=== PATIENT | female | born 1965 | race Caucasian/White ===

== ENCOUNTER 2021-01-26 09:35 | Emergency (ER) | payer OTHER ==
[2021-01-26 10:24] LABS: BASOPHIL 1.1 % (0-2); EOSINOPHIL 4.1 % (0-5); HCT 39.1 % (37.0-47.0); HGB 12.5 g/dl (12.5-16.0); LYMPHOCYTE 26.3 % (15-48); MONOCYTE 9.9 % (0-12); MPV 9.7 fL (6.0-9.5); NEUTROPHIL 58.3 % (41-80); NRBC 0; PLT 248 K/uL (150-400); RBC 4.16 M/uL (4.20-5.40); RDW 12.5 % (11.5-14.0); WBC 7.6 K/uL (4.0-10.5)
[2021-01-26 10:33] LABS: ALBUMIN 3.5 g/dL (3.4-5.0); BILIRUBIN - TOTAL 0.2 mg/dL (0.2-1.0); BUN/CREAT RATIO (CALC) 17.6 RATIO; CREATININE 0.68 mg/dL (0.51-0.95); GLOBULIN (CALCULATION) 4.2 g/dL; POTASSIUM 4.6 mmol/L (3.5-5.1); TOTAL PROTEIN 7.7 g/dL (6.4-8.2)
[2021-01-26 11:00] LABS: INR 1.06 (0.9-1.2); PROTHROMBIN TIME 13.1 SECONDS (11.4-13.6)
[2021-01-26 11:01] LABS: PTT 29.5 SECONDS (22.2-34.7)
[2021-01-26] MEDS ORDERED: NORCO 5-325 TA1 EACH PO (11:37)
[2021-01-26] MEDS ORDERED: BACTROBAN NASAL1 GM TOP ×2 (11:37→11:40)
[2021-01-26] MEDS ORDERED: CEPHALEXIN500 MG PO (11:37)
== END 2021-01-26 14:50 | disposition home or self-care (01) ==
LOC: FER 09:35
PROVIDERS: Emergency Medicine
DX: R91.1 Solitary pulmonary nodule (principal); F17.210 Nicotine dependence, cigarettes, uncomplicated; R00.1 Bradycardia, unspecified
CPT/HCPCS: 36415; 71045; 71260; 80053; 84145; 84484; 85025; 85610; 85730; 86140; 93005; J7030; Q9967